=== PATIENT | female | born 1950 | race Caucasian/White ===

== ENCOUNTER → 2023-05-23 12:58 | Outpatient (CLI) | payer OTHER, SELFPAY ==
--- NOTE | 2023-05-23 | DI.RAD.S_ITS ---
PROCEDURE: XR CHEST 2V INDICATIONS: Multiple fractures of ribs, left side, initial encounter for TECHNIQUE: 2 views of the chest were acquired. COMPARISON: None. FINDINGS: Surgical changes and devices: None. Lungs and pleura: Mild increased pulmonary vascularity and trace effusions. No pneumothorax. There is irregularity poorly visualized of the lateral 6/7 ribs. Mediastinum: Mediastinal contours are normal. Heart size is normal. Bones and chest wall: No suspicious bony abnormalities. Soft tissues appear unremarkable. IMPRESSION: Poorly visualized possible left lateral rib fractures. Rib series is recommended for further evaluation. Mild increased vascularity in trace effusions suggestive of edema. Dictated by: Elizabeth Bonilla M.D. on 05/23/2023 at 16:14 Approved by: Elizabeth Bonilla M.D. on 05/23/2023 at 16:17
== END ==
PROVIDERS: Referring Provider Nurse Practitioner Acute Care; Visit Provider Nurse Practitioner Acute Care
DX: S22.42XA Multiple fractures of ribs, left side, initial encounter for closed fracture (principal); S27.0XXA Traumatic pneumothorax, initial encounter
CPT/HCPCS: 71046